=== PATIENT | male | born 1975 | race Caucasian/White ===

== ENCOUNTER 2020-09-02 19:03 | Emergency (ER) | payer OTHER ==
[~2020-09-02] VITALS: Ht 193 cm; Wt 127.0 kg
[2020-09-02] MEDS ORDERED: SODIUM CHLORIDE IRR BOTTLE IR ONE (19:09)
[2020-09-02 19:11] VITALS: BP 157/103
[2020-09-02 19:14] VITALS: BP_SYST 157
--- NOTE | 2020-09-02 19:28 | NUR ---
LAC APPROX 3CM ON TOP OF HEAD, NO BLEEDING UPON ARRIVAL
--- NOTE | 2020-09-02 19:51 | ER.PDOC ---
General Chief Complaint: Head Injury Stated Complaint: HEAD LAC Time seen by MD: 19:30 Source: patient Exam Limitations: no limitations History of Present Illness Initial Comments about 10 hours ago, pt had the trailer gate come down on his head sustaining a superficial transverse lac to his scalp. wound is 9.5cm in length. Wound is perfectly closed and needs nothing. Pt sent in by his employer. Pt does not know when his last tetanus shot was and will be updated today. Past Medical History Medical History: hypertension Surgical History: no surgical history Social History Alcohol Use: none Drug Use: none Results/Orders Results/Orders Orders - RYAN COLBERT MD Sodium Chloride Irrig Solution (Sodium C (09/02/20 19:09) Vital Signs Date Time Temp Pulse Resp B/P (MAP) Pulse Ox O2 Delivery O2 Flow Rate FiO2 09/02/20 19:14 16 09/02/20 19:11 97.9 104 16 09/02/20 19:11 97.9 104 16 157/103 (121) 96 Room Air 09/02/20 19:11 97.9 104 16 96 ER DEPART Departure Time of Disposition: 19:50 Disposition: 01 HOME, SELF-CARE Impression: Primary Impression: Superficial laceration of scalp Condition: Stable Patient Instructions: Head Injury, Adult, [id number] Referrals: PCP,UNKNOWN (PCP) PRIMARY CARE PROVIDER Comments bactroban 30gm, apply thin coat tid x 5d, No RF Duration or Time Spent with Pa: 10m RYAN COLBERT MD Sep 02, 2020 19:51
[2020-09-02] MEDS ORDERED: ADACEL VIAL IM ONE ×2 (19:55→19:56)
[2020-09-02] MEDS ORDERED: TENIVAC SYRINGE IM ONE (20:00)
--- NOTE | 2020-09-02 20:02 | NUR ---
TETANUS VAC ADACEL (LOT#[id number] EXP: 05/06) GIVEN IM TO RIGHT DELTOID
== END 2020-09-02 20:20 | disposition home or self-care (01) ==
LOC: ER 19:03
DX: S01.01XA Laceration without foreign body of scalp, initial encounter (principal); I10 Essential (primary) hypertension; W22.8XXA Striking against or struck by other objects, initial encounter; Y93.89 Activity, other specified; Y92.89 Other specified places as the place of occurrence of the external cause; Y99.8 Other external cause status
CPT/HCPCS: 90471; 90715; 99283; A4217